=== PATIENT | male | born 2000 | race Caucasian/White ===

== ENCOUNTER 2021-12-11 18:29 | Emergency (ER) | payer MEDICAID ==
[~2021-12-11] VITALS: Ht 170.2 cm; Wt 69.0 kg
[2021-12-11] MEDS ORDERED: METOCLOPRAMIDE HCL 10MG/2ML VIAL IV STA (20:27)
[2021-12-11] MEDS ORDERED: VISCOUS LIDOCAINE 2% 15 ML UDC PO STA (20:27)
[2021-12-11] MEDS ORDERED: MAGNESIUM/ALUMINUM HYDROXIDE/SIMETHICONE 30ML UDC PO STA (20:27)
[2021-12-11] MEDS ORDERED: SODIUM CHLORIDE 0.9% 1,000 ML IV ONE (20:30)
[2021-12-11] MEDS ORDERED: ACETAMINOPHEN 325MG TABLET PO ONE (20:30)
[2021-12-11 20:44] LABS: BASOPHILS % 0.3 % (0.0-2.0); EOSINOPHILS % 0.8 % (0.0-5.0); HEMATOCRIT. 47.5 % (42.0-52.0); HEMOGLOBIN. 15.8 g/dL (14.0-18.0); LYMPHOCYTES % 10.5 % (20.0-50.0); MEAN CORPUSCULAR HEMOGLOBIN 31.2 pg (28.0-32.0); MEAN PLATELET VOLUME 9.1 fl (7.4-10.4); MONOCYTES % 8.1 % (2.0-8.0); NEUTROPHILS % 80.3 % (40.0-76.0); PLATELET 234 x1000/uL (130-400); RED BLOOD CELL COUNT 5.06 mill/uL (4.7-6.1); RED CELL DISTRIBUTION WIDTH 12.8 % (11.6-14.6)
[2021-12-11] MEDS ORDERED: KETOROLAC 15MG/ML VIAL IV ONE (20:45)
[2021-12-11 20:53] LABS: CHLORIDE 107 mEq/L (98-107)
[2021-12-11 21:15] VITALS: BP 145/85
== END 2021-12-12 02:39 | disposition home or self-care (01) ==
LOC: ER 18:29
DX: J11.2 Influenza due to unidentified influenza virus with gastrointestinal manifestations (principal)
CPT/HCPCS: 36415; 80053; 83690; 85025; 96361; 96374; 96375; 99284; J1885; J2765; J7030